=== PATIENT | female | born 1960 | race Hispanic/Latino ===

== ENCOUNTER 2018-04-17 15:33 | Emergency (ER) | payer BC ==
[2018-04-17 15:51] VITALS: BMI 32.1
--- NOTE | 2018-04-17 15:57 | ED PDOC ---
Arrival/HPI - General Chief Complaint: Shortness Of Breath Time Seen by Provider: 04/17/18 15:38 Historian: Patient - History of Present Illness Narrative History of Present Illness (Text): 04/17/18 15:53 58yo female with PMhx of hypertension and diabetes who was bib EMS for complaint of cough and SOB. She reports chronic nonproductive cough secondary to allergies. States she became SOB while coughing today and she called the EMS. She states she does not take any medication for cough. She denies fever, chills, LE edema, calf pain, nausea, vomiting, dizziness, chest pain, diaphoresis, sick contact, travel, any other complaint. Past Medical History - Provider Review Nursing Documentation Reviewed: Yes - Infectious Disease Hx of Infectious Diseases: None - Reproductive Menopause: Yes - Cardiac Hx Hypertension: Yes - Pulmonary Hx Respiratory Disorders: No - Endocrine/Metabolic Hx Diabetes Mellitus Type 2: Yes - Genitourinary/Gynecological Hx Uterine Cancer: Yes - Psychiatric Hx Substance Use: No - Surgical History Other/Comment: uterine Ca - Anesthesia Hx Anesthesia: Yes Hx Anesthesia Reactions: No Family/Social History - Physician Review Nursing Documentation Reviewed: Yes Family/Social History: Unknown Family HX Smoking Status: Unknown If Ever Smoked Hx Alcohol Use: No Hx Substance Use: No Allergies/Home Meds Allergies/Adverse Reactions: Allergies No Known Allergies Allergy (Verified 04/17/18 15:51) Home Medications: Home Meds Medication Instructions Recorded Confirmed Amitriptyline [Elavil] 25 mg PO HS 04/17/18 04/17/18 Cartia 120 120 mg PO DAILY 04/17/18 04/17/18 Lisinopril/Hydrochlorothiazide 1 tab PO DAILY 04/17/18 04/17/18 [Lisinopril-Hydrochlorothiazide 25 mg-20 mg] MetFORMIN [glucOPHAGE] 500 mg PO BID 04/17/18 04/17/18 Metoprolol Succinate [Toprol XL] 100 mg PO DAILY 04/17/18 04/17/18 SITagliptin [Januvia] 100 mg PO DAILY 04/17/18 04/17/18 Review of Systems - Physician Review All systems were reviewed & negative as marked: Yes - Review of Systems Constitutional: Normal Eyes: Normal ENT: Normal Respiratory: SOB, Cough. absent: Sputum, Wheezing Cardiovascular: Normal Gastrointestinal: Normal Genitourinary Female: Normal Musculoskeletal: Normal Skin: Normal Neurological: Normal Endocrine: Normal Hemo/Lymphatic: Normal Psychiatric: Normal Physical Exam Vital Signs Reviewed: Yes Vital Signs Temp Pulse Resp BP Pulse Ox 04/17/18 16:00 20 98 04/17/18 15:57 97.7 F 81 20 142/89 97 Temperature: Afebrile Blood Pressure: Normal Pulse: Regular Respiratory Rate: Normal Appearance: Positive for: Well-Appearing, Non-Toxic, Comfortable Pain Distress: None Mental Status: Positive for: Alert and Oriented X 3 - Systems Exam Head: Present: Atraumatic, Normocephalic Pupils: Present: PERRL Extroacular Muscles: Present: EOMI Conjunctiva: Present: Normal Mouth: Present: Moist Mucous Membranes Neck: Present: Normal Range of Motion Respiratory/Chest: Present: Clear to Auscultation, Good Air Exchange, Other ( Coarse BS ). No: Respiratory Distress, Accessory Muscle Use, Wheezes, Decreased Breath Sounds, Rales, Retracting, Rhonchi, Tachypneic, Tender to Palpation Cardiovascular: Present: Regular Rate and Rhythm, Normal S1, S2. No: Murmurs Abdomen: No: Tenderness, Distention, Peritoneal Signs Back: Present: Normal Inspection Upper Extremity: Present: Normal Inspection. No: Cyanosis, Edema Lower Extremity: Present: Normal Inspection. No: Edema Neurological: Present: GCS=15, CN II-XII Intact, Speech Normal Skin: Present: Warm, Dry, Normal Color. No: Rashes Psychiatric: Present: Alert, Oriented x 3, Normal Insight, Normal Concentration Medical Decision Making ED Course and Treatment: 04/17/18 19:41 Pt presented to ED for stated history. On re evaluation she states she feels much better with treatment. She remain hemodynamically stable in no respiratory distress. Lab was unremarkable, elevated lactate was noted with hyperglycemia and pt was hydrated. She does not meet sepsis criteria CXR NAD Result was DW the pt. She will be Dc home with albuterol and promethazine. Abx is not indicated at this time. - Lab Interpretations Lab Results: 04/17/18 16:14 04/17/18 16:14 Lab Results 04/17/18 16:14: Sodium 142, Chloride 99, Potassium 4.1, Carbon Dioxide 27, Anion Gap 20, BUN 17, Creatinine 0.6 L, Est GFR ( Amer) > 60, Est GFR ( Non-Af Amer) > 60, Random Glucose 226 H, Calcium 9.9, Magnesium 1.7, Total Bilirubin 0.7, AST 123 H, ALT 127 H, Alkaline Phosphatase 106, Lactate Dehydrogenase 666, Total Creatine Kinase 82, Troponin I < 0.01, NT-Pro-B Natriuret Pep 16.9, Total Protein 7.8, Albumin 4.6, Globulin 3.2, Albumin/ Globulin Ratio 1.4 04/17/18 16:14: pO2 41, VBG pH 7.34, VBG pCO2 52.0, VBG HCO3 28.1 H, VBG Total CO2 29.7 H, VBG O2 Sat (Calc) 77.9 H, VBG Base Excess 1.4, VBG Potassium 3.9, Sodium 137.0, Chloride 98.0, Glucose 238 H, Lactate 3.5 H, FiO2 21.0, Venous Blood Potassium 3.9 04/17/18 16:14: PT 11.9, INR 1.04, APTT 29.5 04/17/18 16:14: WBC 9.4, RBC 4.90, Hgb 15.4, Hct 43.4, MCV 88.6, MCH 31.4, MCHC 35.5, RDW 12.8, Plt Count 241, MPV 11.6 H, Gran % 63.7, Lymph % (Auto) 27.4, [place] % (Auto) 6.8 H, Eos % (Auto) 1.7, Baso % (Auto) 0.4, Gran # 5.97, Lymph # ( Auto) 2.6, [place] # (Auto) 0.6, Eos # (Auto) 0.2, Baso # (Auto) 0.04 - RAD Interpretation Radiology Orders: 04/17/18 15:53 CHEST PORTABLE [RAD] Stat - Medication Orders Current Medication Orders: Discontinued Medications Albuterol Sulfate (Albuterol 0.083% Inhal Mona (2.5 Mg/3 Ml) Ud) 2.5 mg INH STAT STA Stop: 04/17/18 15:59 Last Admin: 04/17/18 16:19 Dose: 2.5 mg Sodium Chloride (Sodium Chloride 0.9%) 1,000 mls @ 999 mls/hr IV .Q1H1M STA Stop: 04/17/18 17:43 Promethazine HCl/Dextromethorphan (Phenergan Dm Syrup) 5 ml PO ONCE STA Stop: 04/17/18 15:59 Last Admin: 04/17/18 16:21 Dose: 5 ml Disposition/Present on Arrival - Present on Arrival Any Indicators Present on Arrival: No History of DVT/PE: No History of Uncontrolled Diabetes: No Urinary Catheter: No History of Decub. Ulcer: No History Surgical Site Infection Following: None - Disposition Have Diagnosis and Disposition been Completed?: Yes Diagnosis: Cough Disposition: HOME/ ROUTINE Disposition Time: 19:50 Patient Plan: Discharge Condition: STABLE Discharge Instructions (ExitCare): Cough in Adults Additional Instructions: Follow up with your doctor Return to ED for any new or worsening symptoms Prescriptions: Albuterol HFA [Ventolin HFA 90 mcg/actuation (8 g)] 2 puff IH [id number] #1 puff Promethazine [Phenergan Syrup] 6.25 mg PO Q6 #100 ml Referrals: Fatoumata Lopez, [Primary Care Provider] - Follow up with primary [facility] [place] [Outside] - Follow up with primary Forms: Moxie Jean (Ukrainian)
[2018-04-17] MEDS ORDERED: Albuterol 0.083% Inhal Sol (2.5 mg/3 mL) UD INH STA (15:58)
[2018-04-17] MEDS ORDERED: Promethazine DM 6.25 mg-15 mg/5 ml Syrup PO STA (15:58)
[2018-04-17 16:31] LABS: VENOUS BLOOD GAS BASE EXCESS 1.4 mmol/L (0.0-2.0); VENOUS BLOOD GAS PO2 41 mm/Hg (30-55); VENOUS BLOOD PH 7.34 (7.32-7.43)
[2018-04-17 16:32] LABS: BASO # 0.04 K/mm3 (0.0-2.0); BASO % 0.4 % (0.0-3.0); EOS # 0.2 (0.0-0.7); EOS % 1.7 % (1.5-5.0); GRAN # 5.97 (1.4-6.5); GRAN % 63.7 % (50.0-68.0); HEMOGLOBIN 15.4 g/dL (12.0-16.0); LYMPH # 2.6 (1.2-3.4); LYMPH % 27.4 % (22.0-35.0); MEAN CELL VOLUME 88.6 fl (80.0-105.0); MEAN CORPUSCULAR HEMOGLOBIN 31.4 pg (25.0-35.0); MEAN CORPUSCULAR HGB CONC 35.5 g/dl (31.0-37.0); MEAN PLATELET VOLUME 11.6 fl (7.0-11.0); MONO # 0.6 (0.1-0.6); MONO % 6.8 % (1.0-6.0); RBC 4.9 10^6/uL (3.5-6.1); RED CELL DISTRIBUTION WIDTH 12.8 % (11.5-14.5); WHITE BLOOD COUNT 9.4 10^3/ul (4.5-11.0)
[2018-04-17 16:42] LABS: INR 1.04 (0.93-1.08); PARTIAL THROMBOPLASTIN TIME 29.5 Seconds (25.1-36.5); PROTHROMBIN TIME 11.9 SECONDS (9.4-12.5)
[2018-04-17 16:43] LABS: ALB/GLOB RATIO 1.4 (1.1-1.8); ALBUMIN 4.6 g/dL (3.0-4.8); ALT/SGPT 127 U/L (7-56); AST/SGOT 123 U/L (14-36); BLOOD UREA NITROGEN 17 mg/dL (7-21); CALCIUM 9.9 mg/dL (8.4-10.5); GFR AFRICAN-AMERICAN > 60; GFR NON-AFRICAN AMERICAN > 60
[2018-04-17] MEDS ORDERED: Sodium Chloride 0.9% 1,000 ML IV STA (16:43)
[2018-04-17 16:55] LABS: B-TYPE NATRIURETIC PEPTIDE 16.9 pg/mL (0-450); TROPONIN I < 0.01 ng/mL
--- NOTE | 2018-04-17 17:18 | RAD ---
HISTORY: Cough, shortness of breath. COMPARISON: No prior. FINDINGS: LUNGS: No active pulmonary disease. PLEURA: No significant pleural effusion identified, no pneumothorax apparent. CARDIOVASCULAR: No radiographic findings to suggest acute or significant cardiovascular disease. OSSEOUS STRUCTURES: No significant abnormalities. VISUALIZED UPPER ABDOMEN: Normal. OTHER FINDINGS: None. IMPRESSION: No active disease.
[2018-04-17 19:46] LABS: VENOUS BLOOD GAS BASE EXCESS 3.2 mmol/L (0.0-2.0); VENOUS BLOOD GAS PO2 31 mm/Hg (30-55); VENOUS BLOOD PH 7.36 (7.32-7.43)
[2018-04-17 20:41] VITALS: BP 146/88; PULSE 76; RESP 16; TEMP 98.1; O2SAT 99
--- NOTE | 2018-04-18 08:09 | CARD ---
APPROVED REPORT EKG Measurement Heart [id number] <Conclusion> Normal sinus rhythm Poor R Progression V1-V5.
== END 2018-04-17 20:40 | disposition home or self-care (01) ==
LOC: ED 15:33
DX: R05 Cough (principal); I10 Essential (primary) hypertension; E11.9 Type 2 diabetes mellitus without complications